=== PATIENT | male | born 1990 | race African-American/Black ===

== ENCOUNTER 2018-05-21 18:57 | Emergency (ER) | payer OTHER ==
[~2018-05-21] VITALS: Ht 180.3 cm; Wt 73.5 kg
[2018-05-21] MEDS ORDERED: TRAMADOL 50 MG50 MG PO (20:53)
[2018-05-21] MEDS ORDERED: AUGMENTIN 875-1 EACH PO (20:53)
[2018-05-21 21:04] VITALS: BP 126/60
== END 2018-05-21 21:08 | disposition home or self-care (01) ==
LOC: ER 18:57
PROVIDERS: Nurse Practitioner Family
DX: J02.9 Acute pharyngitis, unspecified (principal); R59.0 Localized enlarged lymph nodes